=== PATIENT | male | born 1960 | race Hispanic/Latino ===

== ENCOUNTER 2016-08-04 07:55 | Outpatient (CLI) | payer MEDICARE ==
[2016-08-04 08:54] LABS: #Basophils 0.1 thou/uL (0.0-0.2); #Eosinphils 0.3 thou/uL (0.0-0.7); #Lymphocytes 1.6 thou/uL (1.20-3.40); #Monocytes 0.8 thou/uL (0.11-0.59); #Neutrophils 5.3 thou/uL (1.40-6.50); %Basophils 0.7 % (0.0-1.0); %Eosinophils 3.4 % (0.0-10.0); %Lymphocytes 20.4 % (21.0-51.0); %Monocytes 10.1 % (0.0-10.0); %Neutrophils 65.4 % (42.0-75.0); Hemoglobin 13.8 g/dL (14.0-18.0); Mean Corpuscular HGB CONC 34.3 g/dL (32.0-36.0); Mean Corpuscular Hemoglobin 30.6 pg (27.0-31.0); Mean Corpuscular Volume 89.1 fl (80.0-94.0); Mean Platelet Volume 6.5 fL (7.4-10.4); Platelet Count 268 thou/uL (130-400); RBC Distribution Width 11.8 % (11.5-14.5)
[2016-08-04 09:11] LABS: Anion Gap 17 mmol/L (10-20); BUN (Urea Nitrogen) 39 mg/dL (8.4-25.7); Calc. Creatinine Clearance 0 mL/min (70-130); Carbon Dioxide 25 mmol/L (22-29); Chloride 104 mmol/L (98-107); Estimated GFR-MDRD 34; Glucose 106 mg/dL (70-105); Potassium 3.9 mmol/L (3.5-5.1); Sodium 142 mmol/L (136-145)
== END 2016-08-04 07:56 | disposition home or self-care (01) ==
LOC: BURLAB 07:55
PROVIDERS: ATTEND Internal Medicine Nephrology
DX: N18.3 Chronic kidney disease, stage 3 (moderate) (principal)
CPT/HCPCS: 36415; 80048; 83970; 84100; 85025

== ENCOUNTER 2017-03-16 19:56 | Emergency (ER) | payer MEDICARE ==
[2017-03-16] MEDS ORDERED: Acetaminophen 500 MG TAB ONE (20:55)
--- NOTE | 2017-03-16 22:21 | CT ---
CT OF THE BRAIN WITHOUT CONTRAST 03/16/17 Comparison is made with an MRI of the brain dated 11/06/15. The patient has a history of prior strokes. Today's exam shows a small scalp hematoma in the left frontal region. The underlying bone appears int act. No skull fracture was seen. There is some mucosal thickening in some of the left ethmoid air jorge ls. The sphenoid sinus and mastoid air cells are clear. The ventricles are normal in size with no shift. No intracranial bleeding or extra-axial hematoma was seen. There is a low density area in the left centrum semiovale. It is more typical of an old stroke than an acute one, though the prior changes of stroke on the previous MRI do not seem to be in exact ly the same spot. This may have occurred in the interval. Correlate with clinical exam. IMPRESSION: 1. Left frontal scalp hematoma. 2. No acute traumatic findings intracranially. 3. Evidence of stroke in the left centrum semiovale which is more likely old than new. POS: HOME
== END 2017-03-16 21:14 | disposition home or self-care (01) ==
LOC: BURERS 19:56
DX: S00.83XA Contusion of other part of head, initial encounter (principal); I10 Essential (primary) hypertension; Z86.73 Personal history of transient ischemic attack (TIA), and cerebral infarction without residual deficits; Z79.899 Other long term (current) drug therapy; W22.8XXA Striking against or struck by other objects, initial encounter
CPT/HCPCS: 70450

== ENCOUNTER 2017-09-16 06:38 | Emergency (ER) | payer MEDICARE ==
[2017-09-16] MEDS ORDERED: Adacel (T-DAP) 0.5 ML VIAL ONE (07:20)
[2017-09-16] MEDS ORDERED: AMOXicillin 250 MG CAP ONE (07:30)
== END 2017-09-16 07:35 | disposition home or self-care (01) ==
LOC: BURERS 06:38
DX: S61.552A Open bite of left wrist, initial encounter (principal); I10 Essential (primary) hypertension; Z86.73 Personal history of transient ischemic attack (TIA), and cerebral infarction without residual deficits; Z79.899 Other long term (current) drug therapy; W54.0XXA Bitten by dog, initial encounter
CPT/HCPCS: 90471; 90715

== ENCOUNTER 2017-09-27 07:36 | Emergency (ER) | payer MEDICARE | END 2017-09-27 07:59 | disposition home or self-care (01) | LOC: BURERS 07:36 | DX: S61.512D Laceration without foreign body of left wrist, subsequent encounter (principal); I10 Essential (primary) hypertension; Z86.73 Personal history of transient ischemic attack (TIA), and cerebral infarction without residual deficits; X58.XXXD Exposure to other specified factors, subsequent encounter ==

== ENCOUNTER 2018-09-25 07:20 | Emergency (ER) | payer MEDICARE ==
[2018-09-25 08:16] LABS: ALT (SGPT) 23 U/L (8-55); AST (SGOT) 27 U/L (5-34); Albumin 4.1 g/dL (3.5-5.0); Alkaline Phosphatase 50 U/L (40-150); Anion Gap 14 mmol/L (10-20); BUN (Urea Nitrogen) 27 mg/dL (8.4-25.7); Bilirubin, Total 0.5 mg/dL (0.2-1.2); Calc. Creatinine Clearance 0 mL/min (70-130); Calcium 9.9 mg/dL (7.8-10.44); Carbon Dioxide 28 mmol/L (22-29); Chloride 102 mmol/L (98-107); Estimated GFR-MDRD 46; Globulin 3.5 g/dL (2.4-3.5); Glucose 110 mg/dL (70-105); Protein, Total 7.6 g/dL (6.0-8.3); Sodium 141 mmol/L (136-145)
[2018-09-25] MEDS ORDERED: Dexamethasone 4 MG TAB ONE (08:26)
[2018-09-25 09:36] LABS: #Eosinphils 0.2 thou/uL (0.0-0.7); #Lymphocytes 1.7 thou/uL (1.20-3.40); #Monocytes 0.5 thou/uL (0.11-0.59); #Neutrophils 3.3 thou/uL (1.40-6.50); %Basophils 0.5 % (0.0-1.0); %Eosinophils 3.5 % (0.0-10.0); %Lymphocytes 29.2 % (21.0-51.0); %Monocytes 9.2 % (0.0-10.0); %Neutrophils 57.6 % (42.0-75.0); Hemoglobin 13.2 g/dL (14.0-18.0); Mean Corpuscular HGB CONC 34.1 g/dL (32.0-36.0); Mean Corpuscular Hemoglobin 30.7 pg (27.0-31.0); Mean Corpuscular Volume 90.1 fL (78.0-98.0); Mean Platelet Volume 7.2 fL (7.4-10.4); Platelet Count 211 thou/uL (130-400); RBC Distribution Width 12.1 % (11.5-14.5); White Blood Cell (WBC) Count 5.7 thou/uL (4.8-10.8)
[2018-09-25 12:29] LABS: Potassium 2.9 mmol/L (3.5-5.1)
== END 2018-09-25 08:32 | disposition home or self-care (01) ==
LOC: BURERS 07:20
DX: B86 Scabies (principal); Z79.899 Other long term (current) drug therapy; I10 Essential (primary) hypertension; Z86.73 Personal history of transient ischemic attack (TIA), and cerebral infarction without residual deficits
CPT/HCPCS: 36415; 80053; 85025; 99283; J8540

== ENCOUNTER 2022-06-16 17:48 | Emergency (ER) | payer OTHER ==
[2022-06-16] MEDS ORDERED: HYDROcodone/Acetaminophen 5/325 mg Tablet ONE (18:20)
== END 2022-06-16 18:34 | disposition home or self-care (01) ==
LOC: BURERS 17:48
DX: M19.032 Primary osteoarthritis, left wrist (principal); I10 Essential (primary) hypertension; Z79.899 Other long term (current) drug therapy